=== PATIENT | female | born 1930 | race Caucasian/White ===

== ENCOUNTER 2017-11-17 12:04 | Inpatient (IN) | payer OTHER, MEDICARE ==
[~2017-11-17] VITALS: Ht 154.9 cm; Wt 45.0 kg
[2017-11-17] MEDS ORDERED: LIPITOR 40MG TA40 MG PO (12:31)
[2017-11-17] MEDS ORDERED: ELIQUIS 5MG PO (12:31)
[2017-11-17] MEDS ORDERED: CARDIZEM CD 12120 MG PO (12:32)
[2017-11-17] MEDS ORDERED: ZITHROMAX 250M250 MG PO (12:32)
[2017-11-17] MEDS ORDERED: MUCINEX 60600 MG/TA1 PO (12:36)
[2017-11-17] MEDS ORDERED: PREDNISONE20 MG PO ×2 (12:36→12:37)
[2017-11-17 12:56] LABS: BASO % 0.5 % (0.0-2.0); EOS # 0.1 (0.0-0.7); EOS % 2.8 % (0-4.0); GRAN # 2.6 (1.4-6.5); HEMATOCRIT 39.2 % (37.0-47.0); HEMOGLOBIN 12.2 g/dl (12.5-16.0); LYMPH # 0.9 (1.2-3.4); LYMPH % 23.8 % (20.0-51.0); MEAN CELL VOLUME 98 fl (80.0-100.0); MEAN CORPUSCULAR HEMOGLOBIN 31 pg (27.0-31.0); MEAN CORPUSCULAR HGB CONC 31 g/dl (33.0-37.0); MEAN PLATELET VOLUME 10.1 fl (7.4-10.4); MONO # 0.3 (0.1-0.6); MONO % 7.6 % (1.7-9.3); PLATELET COUNT 215 K/mm3 (130-400); RED BLOOD COUNT 3.99 M/mm3 (4.10-5.30)
[2017-11-17 13:02] LABS: INR 1.1 (0.8-3.0); PROTHROMBIN TIME 12.2 SECONDS (9.7-12.8)
[2017-11-17 13:05] LABS: PARTIAL THROMBOPLASTIN TIME 37.5 SECONDS (26.0-37.0)
[2017-11-17 13:06] LABS: ALBUMIN 4.1 gm/dL (3.5-5.0); BILIRUBIN,TOTAL 0.4 mg/dL (0.0-1.0); CALCIUM 9.6 mg/dL (8.4-10.2); CREATININE, serum 1.02 mg/dL (0.52-1.25); TOTAL PROTEIN 7.3 gm/dL (6.4-8.2)
[2017-11-17 13:13] LABS: PRE ALBUMIN 23.5 mg/dL (17.6-36.0)
[2017-11-17] MEDS ORDERED: ZYRTEC 10MG10 MG PO (13:43)
[2017-11-17 15:00] VITALS: BP 149/83; PULSE 95; TEMP 97.4
[2017-11-17 17:13] VITALS: BP 120/52; PULSE 101; TEMP 98.8
[2017-11-17 19:39] LABS: COLLECTION METHOD CATHETER
[2017-11-17 19:54] LABS: BUDDING YEAST Present /hpf; MUCOUS Present /lpf; PH 5 (5-8); SQUAMOUS EPITHELIAL 0-2 /hpf; URINE APPEARANCE Cloudy; URINE BACTERIA Rare /hpf; URINE BILIRUBIN Negative (NEGATIVE); URINE BLOOD 3+ (NEGATIVE); URINE COLOR Yellow; URINE GLUCOSE Negative (NEGATIVE); URINE KETONE Trace (NEGATIVE); URINE LEUKOCYTE ESTERASE Trace (NEGATIVE); URINE NITRATE Positive (NEGATIVE); URINE PROTEIN(semi-quant) 1+ (NEGATIVE); URINE RBC >50 /hpf; URINE UROBILINOGEN Negative (NEGATIVE)
[2017-11-17 20:00] VITALS: BP 134/60; PULSE 98; TEMP 98.8
[2017-11-18 04:00] VITALS: BP 118/57; PULSE 93; TEMP 98.2
[2017-11-18 06:56] LABS: BASO % 0.3 % (0.0-2.0); EOS # 0.1 (0.0-0.7); EOS % 1.1 % (0-4.0); GRAN # 10.1 (1.4-6.5); GRAN % 85.5 % (42.2-75.2); HEMATOCRIT 34.7 % (37.0-47.0); HEMOGLOBIN 10.7 g/dl (12.5-16.0); LYMPH # 0.5 (1.2-3.4); MEAN CELL VOLUME 101 fl (80.0-100.0); MEAN CORPUSCULAR HEMOGLOBIN 31 pg (27.0-31.0); MEAN CORPUSCULAR HGB CONC 31 g/dl (33.0-37.0); MEAN PLATELET VOLUME 10.2 fl (7.4-10.4); MONO % 8.7 % (1.7-9.3); PLATELET COUNT 182 K/mm3 (130-400); RED BLOOD COUNT 3.45 M/mm3 (4.10-5.30); REDCELL DISTRIBUTION WIDTH-CV 14.9 % (11.5-14.5)
[2017-11-18 07:11] LABS: CALCIUM 8.4 mg/dL (8.4-10.2); CREATININE, serum 0.95 mg/dL (0.52-1.25); POTASSIUM 4.6 mmol/L (3.4-5.0)
[2017-11-18 09:51] VITALS: BP 127/49; PULSE 86; TEMP 98.2
[2017-11-18 12:32] VITALS: BP 118/53; PULSE 84; TEMP 98.4
[2017-11-18 15:24] VITALS: BP 114/49; PULSE 92; TEMP 99.7
[2017-11-18 20:00] VITALS: BP 105/48; PULSE 93; TEMP 97.8
[2017-11-19] VITALS (14 sets, daily range): BP systolic 35–136; BP diastolic 34–71; PULSE 74–86; TEMP 97.5–99.1
[2017-11-19 06:54] LABS: BASO % 0.3 % (0.0-2.0); EOS # 0.2 (0.0-0.7); EOS % 1.9 % (0-4.0); GRAN # 8.8 (1.4-6.5); GRAN % 79.1 % (42.2-75.2); HEMOGLOBIN 10.6 g/dl (12.5-16.0); LYMPH # 0.6 (1.2-3.4); LYMPH % 5.5 % (20.0-51.0); MEAN CELL VOLUME 99 fl (80.0-100.0); MEAN CORPUSCULAR HEMOGLOBIN 31 pg (27.0-31.0); MEAN CORPUSCULAR HGB CONC 32 g/dl (33.0-37.0); MEAN PLATELET VOLUME 10.8 fl (7.4-10.4); MONO # 1.4 (0.1-0.6); MONO % 12.7 % (1.7-9.3); PLATELET COUNT 159 K/mm3 (130-400); RED BLOOD COUNT 3.39 M/mm3 (4.10-5.30); REDCELL DISTRIBUTION WIDTH-CV 14.7 % (11.5-14.5)
[2017-11-19 07:01] LABS: HEMATOCRIT 33.7 % (37.0-47.0)
[2017-11-19 07:09] LABS: CALCIUM 8.3 mg/dL (8.4-10.2); CREATININE, serum 1.03 mg/dL (0.52-1.25); POTASSIUM 4.6 mmol/L (3.4-5.0)
[2017-11-20] VITALS (10 sets, daily range): BP systolic 90–113; BP diastolic 39–94; PULSE 8–94; TEMP 97–99.6
[2017-11-20 06:38] LABS: HEMATOCRIT 25.4 % (37.0-47.0); HEMOGLOBIN 7.8 g/dl (12.5-16.0)
[2017-11-21] VITALS: BP 105/51; PULSE 92; TEMP 98.3
[2017-11-21 05:26] VITALS: BP 107/52; PULSE 91; TEMP 98.2
[2017-11-21 07:51] LABS: MEAN CELL VOLUME 97 fl (80.0-100.0); MEAN CORPUSCULAR HGB CONC 32 g/dl (33.0-37.0); MEAN PLATELET VOLUME 10.9 fl (7.4-10.4); PLATELET COUNT 154 K/mm3 (130-400); REDCELL DISTRIBUTION WIDTH-CV 15.3 % (11.5-14.5)
[2017-11-21 07:53] LABS: HEMATOCRIT 29.1 % (37.0-47.0); HEMOGLOBIN 9.3 g/dl (12.5-16.0); MEAN CORPUSCULAR HEMOGLOBIN 31 pg (27.0-31.0)
[2017-11-21 08:15] VITALS: BP 125/50; PULSE 96; TEMP 98.5
[2017-11-21 08:16] LABS: BAND 39 % (0-10); EOSINOPHIL 3 % (0-4); LYMPHOCYTE 6 % (20.0-51.0); NEUTROPHILS 39 % (42.0-75.2)
[2017-11-21 08:17] LABS: ANISOCYTOSIS 1+; PLATELET ESTIMATE NORMAL (NORMAL); TOXIC GRANULATION PRESENT
[2017-11-21 09:18] LABS: CALCIUM 7.7 mg/dL (8.4-10.2); CREATININE, serum 1.67 mg/dL (0.52-1.25); POTASSIUM 4.3 mmol/L (3.4-5.0)
[2017-11-21 12:22] VITALS: BP 113/48; PULSE 91; TEMP 98.3
[2017-11-21 15:59] VITALS: BP 119/46; PULSE 86; TEMP 97.6
[2017-11-21 20:00] VITALS: BP 112/43; PULSE 92; TEMP 99.3
[2017-11-22] VITALS: BP 121/50; PULSE 97; TEMP 98.6
[2017-11-22 05:13] VITALS: BP 116/46; PULSE 85; TEMP 97.2
[2017-11-22 07:50] LABS: MEAN CELL VOLUME 97 fl (80.0-100.0); MEAN CORPUSCULAR HGB CONC 32 g/dl (33.0-37.0); MEAN PLATELET VOLUME 10.6 fl (7.4-10.4); PLATELET COUNT 176 K/mm3 (130-400); RED BLOOD COUNT 2.55 M/mm3 (4.10-5.30); REDCELL DISTRIBUTION WIDTH-CV 15.1 % (11.5-14.5)
[2017-11-22 07:51] LABS: HEMATOCRIT 24.6 % (37.0-47.0); HEMOGLOBIN 7.8 g/dl (12.5-16.0); MEAN CORPUSCULAR HEMOGLOBIN 31 pg (27.0-31.0)
[2017-11-22 07:54] LABS: CALCIUM 7.7 mg/dL (8.4-10.2); CREATININE, serum 1.4 mg/dL (0.52-1.25); POTASSIUM 4.7 mmol/L (3.4-5.0)
[2017-11-22 08:56] VITALS: BP 124/47; PULSE 98; TEMP 98.5
[2017-11-22 09:22] LABS: BAND 32 % (0-10); EOSINOPHIL 4 % (0-4); LYMPHOCYTE 5 % (20.0-51.0); NEUTROPHILS 51 % (42.0-75.2); PLATELET ESTIMATE NORMAL (NORMAL)
[2017-11-22 10:17] LABS: HEMATOCRIT 26.2 % (37.0-47.0); HEMOGLOBIN 8.4 g/dl (12.5-16.0)
[2017-11-22] MEDS ORDERED: CEPHALEXIN500 M1 PO (10:26)
[2017-11-22] MEDS ORDERED: TYLENOL 325MG325 MG PO (10:28)
[2017-11-22] MEDS ORDERED: MIRALAX510G PO (10:32)
[2017-11-22 12:10] VITALS: BP 142/47; PULSE 96; TEMP 98.1
[2017-11-22 14:39] VITALS: BP 142/47; PULSE 96; TEMP 98.1
== END 2017-11-22 15:38 | DRG 470 ==
LOC: COL.ER 12:04 → SURG 12:54
PROVIDERS: Emergency Medicine; Hospitalist; Nurse Practitioner Family; Orthopaedic Surgery; Physician Assistant
PROC: 0SRS0J9 Replacement of Left Hip Joint, Femoral Surface with Synthetic Substitute, Cemented, Open Approach (ICD-10-PCS; principal; 2017-11-19 14:00)
DX: S72.092A Other fracture of head and neck of left femur, initial encounter for closed fracture (principal); N39.0 Urinary tract infection, site not specified; N17.9 Acute kidney failure, unspecified; D62 Acute posthemorrhagic anemia; B96.20 Unspecified Escherichia coli [E. coli] as the cause of diseases classified elsewhere; I48.91 Unspecified atrial fibrillation; I10 Essential (primary) hypertension; E78.5 Hyperlipidemia, unspecified; Z87.891 Personal history of nicotine dependence; Z95.3 Presence of xenogenic heart valve; Z79.01 Long term (current) use of anticoagulants; W19.XXXA Unspecified fall, initial encounter
CPT/HCPCS: 99232-AI; 99233-AI; 99239; A9284; C1776; J0690; J0696; J1650; J1885; J2250; J2270; J2405; J2704; J2795; J3010; J7030; P9016

== ENCOUNTER → 2017-11-25 | Outpatient (CLI) | payer MEDICARE ==
[~2017-11-25] MED LIST: CARDIZEM CD 12120 MG PO; CEPHALEXIN500 M1 PO; ELIQUIS 5MG PO; LIPITOR 40MG TA40 MG PO; MIRALAX510G PO; MUCINEX 60600 MG/TA1 PO; PREDNISONE20 MG PO; TYLENOL 325MG325 MG PO; ZITHROMAX 250M250 MG PO; ZYRTEC 10MG10 MG PO
== END ==
LOC: COL.RAD 15:34
DX: J90 Pleural effusion, not elsewhere classified (principal); J18.9 Pneumonia, unspecified organism; Z98.890 Other specified postprocedural states; Z96.642 Presence of left artificial hip joint
CPT/HCPCS: Q9967

== ENCOUNTER → 2017-11-25 | Outpatient (REF) ==
[2017-11-25 09:38] LABS: MEAN CELL VOLUME 99 fl (80.0-100.0); MEAN CORPUSCULAR HGB CONC 31 g/dl (33.0-37.0); RED BLOOD COUNT 2.72 M/mm3 (4.10-5.30); REDCELL DISTRIBUTION WIDTH-CV 15.2 % (11.5-14.5)
[2017-11-25 09:42] LABS: CALCIUM 8.5 mg/dL (8.4-10.2); CREATININE, serum 1.02 mg/dL (0.52-1.25); HEMATOCRIT 26.8 % (37.0-47.0); HEMOGLOBIN 8.4 g/dl (12.5-16.0); MEAN CORPUSCULAR HEMOGLOBIN 31 pg (27.0-31.0); PLATELET COUNT 353 K/mm3 (130-400); POTASSIUM 5.1 mmol/L (3.4-5.0)
[2017-11-25 12:26] LABS: BAND 17 % (0-10); EOSINOPHIL 1 % (0-4); LYMPHOCYTE 17 % (20.0-51.0); NEUTROPHILS 49 % (42.0-75.2)
[2017-11-25 12:27] LABS: PLATELET ESTIMATE NORMAL (NORMAL)
[2017-11-25 12:28] LABS: HYPOCHROMIA 2+
[2017-11-25 12:29] LABS: ANISOCYTOSIS 1+
== END ==
LOC: ZLAB.STJ 09:26
PROVIDERS: Internal Medicine
DX: Z01.89 Encounter for other specified special examinations (principal)

== ENCOUNTER 2017-12-03 14:46 | Inpatient (IN) | payer MEDICARE, BC ==
[2017-12-03] VITALS (123 sets, daily range): BP systolic 79–112; BP diastolic 37–67; PULSE 90–126; TEMP 97–98.8; O2SAT 58–100
[~2017-12-03] VITALS: Ht 154.9 cm; Wt 55.2 kg
[~2017-12-03 14:46] MED LIST changes: -ASPIRIN 32325 MG/TAB PO
[2017-12-03 15:05] LABS: MEAN CELL VOLUME 113 fl (80.0-100.0); MEAN CORPUSCULAR HGB CONC 29 g/dl (33.0-37.0); MEAN PLATELET VOLUME 9.7 fl (7.4-10.4); PLATELET COUNT 454 K/mm3 (130-400); RED BLOOD COUNT 1.25 M/mm3 (4.10-5.30)
[2017-12-03 15:06] LABS: MEAN CORPUSCULAR HEMOGLOBIN 33 pg (27.0-31.0)
[2017-12-03 15:08] LABS: HEMATOCRIT 14.1 % (37.0-47.0); HEMOGLOBIN 4.1 g/dl (12.5-16.0)
[2017-12-03 15:10] LABS: INR 1.6 (0.8-3.0); PROTHROMBIN TIME 17.9 SECONDS (9.7-12.8)
[2017-12-03 15:13] LABS: ALBUMIN 2.7 gm/dL (3.5-5.0); BILIRUBIN,TOTAL 0.4 mg/dL (0.0-1.0); CALCIUM 8.2 mg/dL (8.4-10.2); CREATININE, serum 1.31 mg/dL (0.52-1.25); POTASSIUM 5.2 mmol/L (3.4-5.0); TOTAL PROTEIN 5.3 gm/dL (6.4-8.2)
[2017-12-03 15:23] LABS: BAND 10 % (0-10); LYMPHOCYTE 2 % (20.0-51.0); NEUTROPHILS 81 % (42.0-75.2); NUCLEATED RED BLOOD CELL 4 (0-6); PLATELET ESTIMATE INCREASED (NORMAL); POLYCHROMASIA 3+
[2017-12-03 15:24] LABS: ANISOCYTOSIS 3+; HYPOCHROMIA 3+
[2017-12-03 15:25] LABS: TROPONIN-I 0.032 ng/mL (0.000-0.034)
[2017-12-03] MEDS ORDERED: ASPIRIN 32325 MG/TAB PO (15:46)
[2017-12-03 18:19] LABS: COLLECTION METHOD CATHETER
[2017-12-03 18:31] LABS: MUCOUS Present /lpf; PH 5 (5-8); SQUAMOUS EPITHELIAL 0-2 /hpf; URINE APPEARANCE Hazy; URINE BACTERIA Rare /hpf; URINE BILIRUBIN Negative (NEGATIVE); URINE BLOOD Negative (NEGATIVE); URINE COLOR Yellow; URINE GLUCOSE Negative (NEGATIVE); URINE KETONE Negative (NEGATIVE); URINE LEUKOCYTE ESTERASE Negative (NEGATIVE); URINE NITRATE Negative (NEGATIVE); URINE PROTEIN(semi-quant) Negative (NEGATIVE); URINE UROBILINOGEN Negative (NEGATIVE)
[2017-12-03] MEDS ORDERED: LIPITOR 40MG TA40 MG PO (21:22)
[2017-12-03 23:54] LABS: HEMATOCRIT 23.5 % (37.0-47.0); HEMOGLOBIN 7.5 g/dl (12.5-16.0); MEAN CELL VOLUME 98 fl (80.0-100.0); MEAN CORPUSCULAR HEMOGLOBIN 31 pg (27.0-31.0); MEAN CORPUSCULAR HGB CONC 32 g/dl (33.0-37.0); MEAN PLATELET VOLUME 9.6 fl (7.4-10.4); PLATELET COUNT 318 K/mm3 (130-400); RED BLOOD COUNT 2.41 M/mm3 (4.10-5.30); REDCELL DISTRIBUTION WIDTH-CV 18.7 % (11.5-14.5)
[2017-12-03 23:56] LABS: CALCIUM 6.9 mg/dL (8.4-10.2); CREATININE, serum 1.07 mg/dL (0.52-1.25); POTASSIUM 4.5 mmol/L (3.4-5.0)
[2017-12-04] VITALS (595 sets, daily range): BP systolic 69–119; BP diastolic 42–72; PULSE 66–112; TEMP 97.5–98; O2SAT 75–100
[2017-12-04 07:41] LABS: MEAN CELL VOLUME 98 fl (80.0-100.0); MEAN CORPUSCULAR HGB CONC 32 g/dl (33.0-37.0); MEAN PLATELET VOLUME 9.5 fl (7.4-10.4); PLATELET COUNT 321 K/mm3 (130-400); RED BLOOD COUNT 2.86 M/mm3 (4.10-5.30); REDCELL DISTRIBUTION WIDTH-CV 18.6 % (11.5-14.5)
[2017-12-04 07:42] LABS: HEMATOCRIT 28.1 % (37.0-47.0); HEMOGLOBIN 8.9 g/dl (12.5-16.0); MEAN CORPUSCULAR HEMOGLOBIN 31 pg (27.0-31.0)
[2017-12-04 07:50] LABS: CREATININE, serum 1.02 mg/dL (0.52-1.25); POTASSIUM 4.2 mmol/L (3.4-5.0)
[2017-12-04 07:58] LABS: BAND 17 % (0-10); BASOPHIL 1 % (0-2); LYMPHOCYTE 5 % (20.0-51.0); METAMYELOCYTE 4 % (0-0); MYELOCYTE 2 % (0-0); NEUTROPHILS 70 % (42.0-75.2); NUCLEATED RED BLOOD CELL 4 (0-6); PLATELET ESTIMATE NORMAL (NORMAL); POLYCHROMASIA 1+
[2017-12-05] VITALS (578 sets, daily range): BP systolic 85–116; BP diastolic 35–56; PULSE 58–77; TEMP 97.7–98.2; O2SAT 68–100
[2017-12-05 05:17] LABS: BASO % 0.2 % (0.0-2.0); EOS # 0.1 (0.0-0.7); EOS % 0.5 % (0-4.0); GRAN # 10.4 (1.4-6.5); GRAN % 81.2 % (42.2-75.2); LYMPH # 0.8 (1.2-3.4); LYMPH % 6.3 % (20.0-51.0); MEAN CELL VOLUME 101 fl (80.0-100.0); MEAN CORPUSCULAR HGB CONC 31 g/dl (33.0-37.0); MEAN PLATELET VOLUME 9.6 fl (7.4-10.4); MONO # 1.4 (0.1-0.6); MONO % 10.9 % (1.7-9.3); PLATELET COUNT 306 K/mm3 (130-400); RED BLOOD COUNT 3.02 M/mm3 (4.10-5.30); REDCELL DISTRIBUTION WIDTH-CV 20.3 % (11.5-14.5)
[2017-12-05 05:18] LABS: HEMATOCRIT 30.6 % (37.0-47.0); HEMOGLOBIN 9.4 g/dl (12.5-16.0); MEAN CORPUSCULAR HEMOGLOBIN 31 pg (27.0-31.0)
[2017-12-05 05:28] LABS: CALCIUM 7.5 mg/dL (8.4-10.2); CREATININE, serum 1.16 mg/dL (0.52-1.25); POTASSIUM 4.9 mmol/L (3.4-5.0)
[2017-12-06 04:34] VITALS: BP 117/34; PULSE 79; TEMP 98.6
[2017-12-06 09:54] VITALS: BP 104/42; PULSE 73
[2017-12-06] MEDS ORDERED: ROXANOL 20MG20 MG/ML SL (14:30)
[2017-12-06] MEDS ORDERED: TRANSDERM-0.5 MG/21 TD (14:31)
[2017-12-06 15:07] VITALS: BP 104/42; PULSE 73; TEMP 98.6
[2017-12-06 21:06] LABS: MYCOPLASMA IGM ANTIBODIES 0.27 (0.00-0.90)
== END 2017-12-06 15:20 | disposition hospice, inpatient (51) | DRG 871 ==
LOC: COL.ER 14:46 → ICU 16:15 → SURG 12-05 23:15
PROVIDERS: Emergency Medicine; Family Medicine; Internal Medicine Gastroenterology; Physician Assistant
PROC: 0DB68ZX Excision of Stomach, Via Natural or Artificial Opening Endoscopic, Diagnostic (ICD-10-PCS; 2017-12-04)
PROC: 0W3P8ZZ Control Bleeding in Gastrointestinal Tract, Via Natural or Artificial Opening Endoscopic (ICD-10-PCS; principal; 2017-12-04 09:00)
DX: A41.9 Sepsis, unspecified organism (principal); J18.9 Pneumonia, unspecified organism; J96.01 Acute respiratory failure with hypoxia; K26.4 Chronic or unspecified duodenal ulcer with hemorrhage; K22.11 Ulcer of esophagus with bleeding; Z66 Do not resuscitate; Z51.5 Encounter for palliative care; D62 Acute posthemorrhagic anemia; J90 Pleural effusion, not elsewhere classified; N17.9 Acute kidney failure, unspecified; E44.0 Moderate protein-calorie malnutrition; I48.2 Chronic atrial fibrillation; Z95.2 Presence of prosthetic heart valve; I10 Essential (primary) hypertension; Z87.891 Personal history of nicotine dependence; E87.5 Hyperkalemia; Z79.01 Long term (current) use of anticoagulants; I35.0 Nonrheumatic aortic (valve) stenosis
CPT/HCPCS: 99222-AI; 99233-AI; 99239; C1751; C9113; J0282; J2543; J2704; J3370; J7030; J7050; J7060; J7120; P9016

== ENCOUNTER → 2017-12-03 | Outpatient (REF) ==
[~2017-12-03] MED LIST changes: +ASPIRIN 32325 MG/TAB PO
[2017-12-03 09:38] LABS: COLLECTION METHOD CLEAN CATCH
[2017-12-03 09:44] LABS: PH 5 (5-8); SQUAMOUS EPITHELIAL 0-2 /hpf; URINE APPEARANCE Clear; URINE BACTERIA None Seen /hpf; URINE BILIRUBIN Negative (NEGATIVE); URINE BLOOD 1+ (NEGATIVE); URINE COLOR Yellow; URINE GLUCOSE Negative (NEGATIVE); URINE KETONE Negative (NEGATIVE); URINE LEUKOCYTE ESTERASE Negative (NEGATIVE); URINE NITRATE Negative (NEGATIVE); URINE PROTEIN(semi-quant) Negative (NEGATIVE); URINE RBC 0-2 /hpf; URINE UROBILINOGEN Negative (NEGATIVE)
== END ==
LOC: ZLAB.STJ 09:35
PROVIDERS: Internal Medicine
DX: N39.0 Urinary tract infection, site not specified (principal)